=== PATIENT | female | born 1995 | race Caucasian/White ===

== ENCOUNTER → 2022-08-25 12:35 | Outpatient (CLI) | payer OTHER, SELFPAY ==
[2022-08-25 13:03] LABS: Specimen Label NATERA
== END ==
PROVIDERS: PCP Physician Assistant; Referring Provider Obstetrics & Gynecology; Visit Provider Obstetrics & Gynecology
DX: Z34.81 Encounter for supervision of other normal pregnancy, first trimester (principal)
CPT/HCPCS: 36415; 86850; 86900; 86901

== ENCOUNTER → 2022-09-07 08:57 | Outpatient (CLI) | payer OTHER, SELFPAY | PROVIDERS: PCP Physician Assistant; Visit Provider Obstetrics & Gynecology | DX: Z34.01 Encounter for supervision of normal first pregnancy, first trimester (principal); Z3A.12 12 weeks gestation of pregnancy | CPT/HCPCS: 87086 ==

== ENCOUNTER → 2022-09-07 09:01 | Outpatient (CLI) | payer OTHER, SELFPAY ==
[2022-09-07 09:52] LABS: Add Manual Diff / Slide Review NO; Basophils Absolute Auto 0 /uL (0-100); Basophils Percent Auto 0.2 % (0-2); Eosinophils Absolute Auto 100 /uL (0-450); Hematocrit 35.3 % (36-46); Hemoglobin 12.2 g/dL (12.0-16.0); Lymphocytes Absolute Auto 1700 /uL (1100-4500); Lymphocytes Percent Auto 19.9 % (25-40); Mean Corpuscular HGB Conc 34.7 % (30-36); Mean Corpuscular Hemoglobin 29.9 PG (26-34); Mean Corpuscular Volume 86.4 fL (80-100); Monocytes Absolute Auto 500 /uL (0-900); Monocytes Percent Auto 6.1 % (3-14); Neutrophils Absolute Auto 6200 /uL (1500-7000); Neutrophils Percent Auto 72.8 % (50-75); Platelet Count 288 X10^3/uL (150-400); Red Blood Cell Count 4.08 X10^6/uL (4.0-5.2); Red Cell Distribution Width 14.2 % (11.6-14.8); White Blood Cell Count 8.5 X10^3/uL (4.5-11.0)
[2022-09-07 15:31] LABS: Hepatitis B Surface Antigen NEGATIVE s/c (NEGATIVE); Rubella Antibody IgG > 350.0 IU/mL (>15)
[2022-09-07 15:36] LABS: HIV 1 & 2 Ab/Ag 4th Gen Combo NEGATIVE (NEGATIVE); Hep C Virus Ab w/Reflex Quant NEGATIVE s/c (NEGATIVE)
[2022-09-08 06:07] LABS: RPR Screen Non Reactive (Non Reactive)
[2022-09-08 09:02] LABS: Varicella IgG Antibody 1769 index (Immune >165)
== END ==
PROVIDERS: PCP Physician Assistant; Referring Provider Obstetrics & Gynecology; Visit Provider Obstetrics & Gynecology
DX: Z34.01 Encounter for supervision of normal first pregnancy, first trimester (principal); Z3A.12 12 weeks gestation of pregnancy
CPT/HCPCS: 36415; 80055; 86787; 86803; 87086; 87389

== ENCOUNTER → 2022-09-15 16:35 | Outpatient (CLI) | payer OTHER, SELFPAY | PROVIDERS: PCP Physician Assistant; Referring Provider Obstetrics & Gynecology; Visit Provider Obstetrics & Gynecology | DX: O28.5 Abnormal chromosomal and genetic finding on antenatal screening of mother (principal) | CPT/HCPCS: 36415 ==

== ENCOUNTER → 2022-10-06 11:09 | Outpatient (CLI) | payer OTHER, SELFPAY ==
[2022-10-08 22:58] LABS: Estriol, Free 0.26 ng/mL (.); Inhibin A, Dimeric 165.97 pg/mL (.); Inhibin A, MoM 1.54 (.); Maternal Ethnicity Caucasian (.); Maternal Weight 296 lbs (.); Number of Fetuses No (.); OSBR Risk 1 IN 10000 (.); Results Report (.); Test Results *Screen Positive* (.); hCG, MoM 2.05 (.); hCG, Serum 57134 mIU/mL (.)
== END ==
PROVIDERS: PCP Physician Assistant; Referring Provider Obstetrics & Gynecology; Visit Provider Obstetrics & Gynecology
DX: Z34.02 Encounter for supervision of normal first pregnancy, second trimester (principal); Z3A.16 16 weeks gestation of pregnancy
CPT/HCPCS: 36415; 82105; 82677; 84702; 86336

== ENCOUNTER → 2022-10-18 14:26 | Outpatient (CLI) | payer OTHER, SELFPAY ==
[2022-10-18 20:01] LABS: Urine N gonorrhoeae NOT DETECTED
[2022-10-18 20:24] LABS: Urine Chlamydia NOT DETECTED
== END ==
PROVIDERS: PCP Physician Assistant; Visit Provider Obstetrics & Gynecology
DX: Z34.02 Encounter for supervision of normal first pregnancy, second trimester (principal); Z3A.17 17 weeks gestation of pregnancy
CPT/HCPCS: 87491; 87591

== ENCOUNTER 2022-11-29 08:16 | Inpatient (IN) | payer OTHER, SELFPAY ==
--- NOTE | 2022-11-29 | DI.US.S_ITS ---
PROCEDURE: US OB LIMITED INDICATIONS: DEMISE OUTSIDE/PRIOR DATING DATA: Last menstrual period (LMP): 06/15/22. LMP-based estimated date of delivery (PATRICK): 03/22/23. First dating scan (date and location): 08/25/22. Estimated date of delivery (PATRICK) from first dating scan: 03/24/23. The calculations are made using the clinical PATRICK of 03/22/23. TECHNIQUE: Real-time scanning was performed of the fetus, with image documentation. Endovaginal scanning: Not performed COMPARISON: None. FINDINGS: A single living intrauterine gestation is present. There is severe hydrops diffusely. Presentation: Breech. Placenta: Placental position is anterior and fundal, without previa. Amniotic fluid index: Subjectively decreased. There are several adhesions within the amniotic sac. Single deepest vertical pocket is not applicable cm. heart rate: Absent. Maternal cervical canal: Not imaged. Biparietal diameter 4.9 cm, 20 weeks five days Head circumference 17.6 cm, 20 weeks one day Abdominal circumference 16.4 cm, 21 weeks three days Femur length 3.1 cm, 19 weeks four days Composite gestational age 20 weeks three days Estimated gestational age from initial scan: 23 weeks six days. IMPRESSION: 1. Findings consistent with demise at 20 weeks three days. 2. hydrops. Dictated by: Maris Gallo M.D. on 11/29/2022 at 9:46 Approved by: Maris Gallo M.D. on 11/29/2022 at 10:11
[2022-11-29 10:47] LABS: Add Manual Diff / Slide Review NO; Basophils Absolute Auto 0 /uL (0-100); Basophils Percent Auto 0.3 % (0-2); Eosinophils Absolute Auto 200 /uL (0-450); Eosinophils Percent Auto 1.5 % (2-4); Hematocrit 35.7 % (36-46); Hemoglobin 11.9 g/dL (12.0-16.0); Lymphocytes Absolute Auto 2000 /uL (1100-4500); Lymphocytes Percent Auto 17.7 % (25-40); Mean Corpuscular HGB Conc 33.5 % (30-36); Mean Corpuscular Hemoglobin 29.7 PG (26-34); Mean Corpuscular Volume 88.6 fL (80-100); Monocytes Absolute Auto 500 /uL (0-900); Monocytes Percent Auto 4.1 % (3-14); Neutrophils Absolute Auto 8800 /uL (1500-7000); Neutrophils Percent Auto 76.4 % (50-75); Platelet Count 320 X10^3/uL (150-400); Red Blood Cell Count 4.03 X10^6/uL (4.0-5.2); White Blood Cell Count 11.5 X10^3/uL (4.5-11.0)
[2022-11-29 10:57] VITALS: BP 133/70
--- NOTE | 2022-11-29 10:57 | PM.OBHP.IH.1 ---
OB HPI Date/Time Date of admission: 11/29/22 Date Patient Seen: 11/29/22 Time Patient Seen: 09:45 History of Present Condition Chief complaint: Hysterotomy PATRICK Calculator Estimated Delivery Date Method Current WG Current Estimate 03/22/23 LMP (Certain) 23w 6d Other Estimates 03/24/23 Ultrasound #1 23w 4d Estimated Gestational Age (weeks): 23+6 : 1 Para: 0 care: good care, initiated at week # (10), number of visits (11) and pounds weight gain (0) Dating criteria OB: LMP confirmed by 1st trimester US Ultrasounds: abnormal US findings Abnormal ultrasound findings: Cystic hygroma discovered at 9 weeks' gestation, also hydrops Obstetrical complications: other (cystic hygroma) Medical complications OB: none Indications Indication for induction OB: other (Intrauterine demisa) Preadmission Labs Last OB Lab Results: Blood Type O Positive 08/25/22 12:50 Antibody Screen Negative 08/25/22 12:50 Hematocrit 35.7 % (36-46) L 11/29/22 10:10 Hemoglobin 11.9 g/dL (12.0-16.0) L 11/29/22 10:10 Hepatitis B Surface Antigen Negative s/c (NEGATIVE) 09/07/22 09:06 Hepatitis C Antibody Negative s/c (NEGATIVE) 09/07/22 09:06 Rubella Antibody > 350.0 IU/mL (>15) 09/07/22 09:06 Varicella-Zoster IgG Antibody 1769 index (Immune >165) 09/07/22 09:06 -: Chlamydia screen: negative, Gonorrhea screen: negative and Urine: negative Genetic Screens: Cell-free DNA: Abnormal (insufficient fraction) External Labs -: Urine: negative PFSH Medical History (Updated 11/26/22 @ 13:54 by Kinsey Stanton MD) Acne (~2010) Asthma Family history of MTHFR deficiency Painful menstruation Slipped capital femoral epiphysis (~2009) Surgical History (Updated 08/26/22 @ 06:45 by Flori Payne) Anesthesia History of hip surgery Family History (Updated 08/26/22 @ 06:43 by Flori Payne) Grandfather Bladder cancer Diabetes mellitus Mother Diabetes mellitus Asthma History of recurrent miscarriages MTHFR gene mutation Delivery outcome of stillborn infant Father Hyperlipidemia Hypertension Grandfather Cardiac arrhythmia Pacemaker Grandmother Osteoporosis Anemia Hypoglycemia Grandmother Colostomy in place Diabetes mellitus Neuropathy of both feet Sister Anxiety Vasovagal syncope Brother Asthma Sister Anxiety Social History marital status: number of children: 0 household members: spouse lives independently: Yes caregiver/support person: No housing: house pets and animals: Yes education level: college ([employer] x[employer]) occupational status: employed (4th grade math teacher) current occupational exposures/hazards: No keshawn/oriental orthodox: Roman Catholic special keshawn needs: No travel history: recent (domestic only) seatbelt use: always helmet use: Yes water heater temp set < 120 deg: Yes working smoke detector in home: Yes fire extinguisher in home: Yes carbon monox detector in home: Yes firearms in home: Yes firearms unloaded and locked: Yes do you feel safe at home: Yes Smoking Status: Never smoker second hand exposure: No alcohol intake: former (rarely when not ) substance use type: does not use during the past year weight has: other (large ~70lb fluctuation in last 1-2 years) well-balanced diet: about half the time daily servings fruits/ve-4 caffeine: No (no longer drinking coffee while ) Type(s) of exercise: walking Meds Home Medications and Allergies Home Medications Medication Instructions Recorded Confirmed Type albuterol sulfate 90 mcg/actuation 2 puff inhalation Q6H PRN 07/27/22 11/19/22 History aerosol inhaler prenat.vits,araceli,[id number] 1 tab PO DAILY 07/27/22 11/19/22 History progesterone micronized 200 mg 400 mg vaginal BEDTIME 07/27/22 11/19/22 History capsule nystatin-triamcinolone 100,000 1 applic topical BID #30 grams 11/12/22 11/19/22 Rx unit/gram-0.1 % topical ointment metformin 500 mg tablet 500 mg PO BID 11/19/22 11/19/22 History Allergies Allergy/AdvReac Type Severity Reaction Status Date / Time No Known Drug Allergies Allergy Unverified 11/19/22 09:01 OB Exam Narrative Exam Narrative: Generally: Patient is sitting up in bed, no acute distress Objective Labs 11/29/22 10:10 Labs: Laboratory Results - last 24 hr 11/29/22 10:10 WBC 11.5 H RBC 4.03 Hgb 11.9 L Hct 35.7 L MCV 88.6 MCH 29.7 MCHC 33.5 RDW 14.0 Plt Count 320 Neut % (Auto) 76.4 H Lymph % (Auto) 17.7 L Harmon % (Auto) 4.1 Eos % (Auto) 1.5 L Baso % (Auto) 0.3 Neut # (Auto) 8800 H Lymph # (Auto) 2000 Harmon # (Auto) 500 Eos # (Auto) 200 Baso # (Auto) 0 Assessment and Plan Assessment and Plan Assessment and Plan narrative: Assessment: 27-year-old 0 with an intrauterine demise at 23+ 6 weeks' gestation Large cystic hygroma and hydrops Breech presentation Plan: Misoprostol 600 mcg intra vaginal every 4 hours Fentanyl/nitrous oxide/epidural as needed Discussed piece of tissue for microarray genetics Discussed disposition of the fetus to [facility] home Time Spent with Patient Total time spent with greater than 50% in coordination of care (as documented) at patient's floor/unit and/or counseling patient:: Greater than 35 minutes
[2022-11-29] MEDS: miSOPROStoL 200 MCG TABLET 600 MCG VAG ×3 (11:12→19:52)
[2022-11-29] MEDS: fentaNYL 100 MCG/2 ML INJ IV (16:33)
--- NOTE | 2022-11-29 17:03 | PM.OBPNLAB ---
Date/Time Date Patient Seen: 11/29/22 Time Patient Seen: 17:04 Pain Control Comments: Getting more uncomfortable since the second dose of misoprostol at 3:30 pm Requesting an epidural Assessment and Plan Assessment: induction ongoing Comments: Epidural We will check cervix at next misoprostol dose
--- NOTE | 2022-11-29 17:41 | PM.AN.REGBLK ---
Regional Block Pre-procedure Procedure: Continuous Lumbar Epidural for L&D PMH/ROS narrative: f- demise 20 weeks Exam narrative: Obesity Labs: Hct 35.7 % (36-46) L 11/29/22 10:10 Plt Count 320 X10^3/uL (150-400) 11/29/22 10:10 Medications: Current Medications Generic Name Dose Route Start Last Admin Trade Name Freq PRN Reason Stop Dose Admin Carboprost Tromethamine 250 mcg 11/29/22 10:04 Carboprost 250 Mcg/Ml Ampul IM Q90M PRN Bleeding Fentanyl 100 mcg 11/29/22 10:04 11/29/22 16:33 Fentanyl 100 Mcg/2 Ml Inj IV 100 mcg Q1H PRN Administration Pain, Severe (7-10) Oxytocin/Lactated Ringer's 30 unit in 500 mls @ 200 mls/hr 11/29/22 10:04 Oxytocin Premix IV CONT PRN Bleeding Protocol Tranexamic Acid 1,000 mg/ 100 mls @ 200 mls/hr 11/29/22 10:04 Sodium Chloride IV NOW PRN Bleeding Lidocaine HCl 20 ml 11/29/22 10:04 Lidocaine 1% 20 Ml INJ INTRA-OP PRN Post Delivery Methylergonovine Maleate 0.2 mg 11/29/22 10:04 Methylergonovine 0.2 Mg Tablet PO Q6HR PRN Heavy Bleeding Methylergonovine Maleate 0.2 mg 11/29/22 10:04 Methylergonovine 0.2 Mg/Ml Vial IM NOW PRN Bleeding Misoprostol 600 mcg 11/29/22 11:15 11/29/22 15:25 Misoprostol 200 Mcg Tablet VAG 600 mcg Q4HR LACY Administration Naloxone HCl 0.2 mg 11/29/22 10:04 Naloxone 0.4 Mg/Ml Vial IV Q2MIN PRN Opiate Reversal Oxytocin 10 unit 11/29/22 10:04 Oxytocin 10 Unit/Ml Vial IM NOW PRN Bleeding Allergies: Allergies Allergy/AdvReac Type Severity Reaction Status Date / Time No Known Drug Allergies Allergy Unverified 11/19/22 09:01 Procedure Insertion date: 11/29/22 Insertion time: 17:30 Prep/Local: betadine x3 and 1% lidocaine Interspace: L4-5 Patient position: sitting Needle: 18 gauge Dyllan Loss of resistance with: air WALTER at (cm): 8 Catheter placed at SKIN (cm): 13 Catheter in SPACE (cm): 5 Initial Medications TEST DOSE time: 17:32 BOLUS DOSE time: 17:34 BOLUS DOSE (mL): 10 BOLUS DOSE med: 0.25% bupivacaine Infusion Initial rate (mL/hr): 12 Subsequent interventions: Rate was changed to 8ml/hr at 2100 Post-procedure Anesthesia time START: 17:30
[2022-11-29] MEDS: CEFAZOLIN 2 GM/100 ML PREMIX 100 ML IV (21:32)
[2022-11-30] MEDS: FENT 2MCG/ML BUPIV 0.1% EPI 200 MCG/100 ML PLAST..BAG 12 MCG EPIDURAL (00:05)
[2022-11-30] MEDS: miSOPROStoL 200 MCG TABLET 600 MCG VAG ×2 (00:06→04:09)
[2022-11-30] MEDS: CEFAZOLIN 2 GM/100 ML PREMIX 100 ML IV ×3 (05:28→20:16)
[2022-11-30] MEDS: FENT 2MCG/ML BUPIV 0.1% EPI 200 MCG/100 ML PLAST..BAG 8 MCG EPIDURAL ×2 (07:37→14:49)
[2022-11-30] MEDS: OXYTOCIN PREMIX 30 UNIT/500 ML PLAST..BAG 6 UNIT IV (09:26)
--- NOTE | 2022-11-30 12:47 | PM.OBPNLAB ---
Date/Time Date Patient Seen: 11/30/22 Time Patient Seen: 08:00 Pain Control Comments: Epidural not working as well, anesthesiologist on his way to replace Pelvic Exam Dilation (cm): 1 Effacement (%): 75 Amniotic membrane status: Ruptured Comments: SROM at 5pm yesterday Assessment and Plan Assessment: induction ongoing Plan: continuous present management Comments: D/C Misoprostol Begin high dose Pitocin 6mIU/min Continue antibiotics
--- NOTE | 2022-11-30 12:50 | PM.OBPNLAB ---
Date/Time Date Patient Seen: 11/30/22 Time Patient Seen: 12:51 Pain Control Pain control: epidural Comments: Patient comfortable Pelvic Exam Dilation (cm): 3 Effacement (%): 80 Amniotic membrane status: Ruptured Assessment and Plan Assessment: induction ongoing Plan: continuous present management
[2022-11-30] MEDS: ACETAMINOPHEN 325 MG TABLET 975 MG PO (14:54)
--- NOTE | 2022-11-30 19:29 | PM.PREOP ---
Pre-operative Note Interval Note History & Physical reviewed/Exam performed by Physician: Yes Changes to H&P: No H&P completed within 30 days and has changed as indicated here:: 11/29/22
--- NOTE | 2022-11-30 19:45 | P.PCNOB_ITS ---
Events: Labor Induction and Other (Intrauterine demise) Labor & Delivery Delivery date: 11/30/22 Intrapartal Events: None Cervical ripening method: per misoprostal protocol Induction method: per pitocin protocol Delivery monitor: external uterine Route of delivery: L&D Laceration Description: None Quantitative Blood Loss: 50 Anesthesia Type: Epidural Complications: Retained placenta Narrative: Patient pushed for 36 min. At 1756, a non-viable female fetus delivered spontaneously. The cord was double-clamped and cut. Pitocin 30 Units in 500cc was given at 220cc/hour. After 1 hr and 45 min, the placenta still had not delivered. Patient taken to OR for removal of placenta. weight: 454gm. Consulting Property Manager notified. Baby 1: gender: Female Presentation: breech Placenta delivery description: Uterine Exploration Cord Vessel Description: 3 Vessels score (1 min): 0 score (5 min): 0 weight: 1 lb 0.014 oz Plan for aftercare: Other (To the OR for placenta removal)
[2022-11-30] MEDS: CEFAZOLIN VIAL 1 GM in SODIUM CHLORIDE 0.9% 100 ML IV (20:20)
--- NOTE | 2022-11-30 20:22 | SUR.OPER ---
Lithotomy on padded OR bed, head on pillow, arms secured on padded arm boards at <90 degrees abduction. Legs secured in padded yellow fins stirrups.
[2022-11-30] MEDS: AZITHROMYCIN 500 MG in DEXTROSE 5% IN WATER 250 ML 250 MG IV (20:42)
--- NOTE | 2022-11-30 20:44 | PM.GYNOP.1 ---
Operative Date/Time/Diagnoses Date of procedure: 11/30/22 Time of procedure: 20:44 Pre-op diagnosis: Retained placenta Post-op diagnosis: same Procedure & Clinicians Procedure: Procedures Operation Date: 11/29/22 11:45 <No data on this case meets the specified criteria> Operation Date: 11/30/22 20:00 Actual Procedure Side Surgeon p removal of placenta, suction Kinsey Stanton MD Indications: Retained placenta after 23 week delivery Surgeon: Kinsey Stanton Anesthesia Type: Epidural and Sedation (light) Operative Notes Findings: Entire placenta with membranes attached still in uterus Closure Type: not applicable Specimen(s): other (Placenta) Applied: catheter (Chowdhury catheter in place) Estimated blood loss (mL): 100 Blood products transfused: none Procedure in detail: Informed consent was obtained. The patient was taken to the operating room where she was placed in the dorsal supine position. Her epidural was dosed. She was placed in the dorsal lithotomy position, and prepped and draped in the usual sterile fashion. A bivalve speculum was placed into the vagina. The anterior lip of the cervix was grasped with a ring forcep. A second ring forceps was used to probe the uterus and grasped the placenta. The placenta was removed in 1 piece with membranes attached. Using the # 14 curved plastic curette, several passes with suction revealed blood only. The suction curette was removed from the uterus. The ring forcep was removed from the anterior lip of the cervix. There was minimal bleeding from the cervical os. Sponge, lap, and instrument counts were correct x2. The patient tolerated the procedure well, and was taken to PACU in stable condition. Complications: none Post-operative Condition: stable Disposition: PACU Plan for aftercare: To the center after recovery
--- NOTE | 2022-11-30 20:48 | SUR.PHASEI ---
Patient transferred directly to L&D via bed from operating room with surgical staff in stable condition; Report given to GARRICK Neff.
[2022-11-30] MEDS: IBUPROFEN 600 MG TABLET PO (22:32)
[2022-11-30] MEDS: OXYCODONE IR 5 MG TABLET PO (22:33)
[2022-12-01 05:42] LABS: Add Manual Diff / Slide Review NO; Basophils Absolute Auto 0 /uL (0-100); Basophils Percent Auto 0.1 % (0-2); Eosinophils Absolute Auto 200 /uL (0-450); Eosinophils Percent Auto 1.3 % (2-4); Hematocrit 30.5 % (36-46); Hemoglobin 10.6 g/dL (12.0-16.0); Lymphocytes Absolute Auto 2300 /uL (1100-4500); Lymphocytes Percent Auto 18.5 % (25-40); Mean Corpuscular HGB Conc 34.8 % (30-36); Mean Corpuscular Hemoglobin 30.7 PG (26-34); Mean Corpuscular Volume 88.3 fL (80-100); Monocytes Absolute Auto 700 /uL (0-900); Monocytes Percent Auto 5.5 % (3-14); Neutrophils Absolute Auto 9400 /uL (1500-7000); Neutrophils Percent Auto 74.6 % (50-75); Platelet Count 254 X10^3/uL (150-400); Red Blood Cell Count 3.45 X10^6/uL (4.0-5.2); Red Cell Distribution Width 13.9 % (11.6-14.8); White Blood Cell Count 12.5 X10^3/uL (4.5-11.0)
[2022-12-01] MEDS: IBUPROFEN 600 MG TABLET PO ×2 (06:38→13:01)
[2022-12-01] MEDS: ACETAMINOPHEN 325 MG TABLET 650 MG PO ×2 (06:38→13:01)
[2022-12-01 14:25] VITALS: BP 115/71; PULSE 72; RESP 14; TEMP 36.7
--- NOTE | 2022-12-06 10:30 | PM.OBDS.1 ---
Discharge Providers Provider Date of admission: 11/29/22 08:16 Discharge Date: 12/01/22 Primary care physician: Radha Mcneal PA-C Consults: 11/29/22 10:04 Consult to Anesthesiology Urgent Comment: Consulting Provider: Anesthesiologist Reason for consultation: Epidural Discharge provider: Kinsey Stanton MD Summary Hospital Course Date Patient Seen: 12/01/22 Time Patient Seen: 11:30 Diagnoses: 23+ 6 weeks' gestation Cystic hygroma Intrauterine demise Induction of labor with misoprostol Spontaneous vaginal delivery Retained placenta To operating room for removal of placenta Hospital Course: Patient is a 27-year-old 1 para 0 who presented on November 29, 2022 for induction of labor of a 23-,6/7 weeks intrauterine demise. complicated by cystic hygroma and hydrops. She was started on misoprostol 600 mcg intra vaginal every 4 hours. She received an epidural for pain management. On November 30, 2022, patient had a spontaneous vaginal delivery of a nonviable in the breech presentation. Some membranes delivered spontaneously. There was a retained placenta. Patient was taken to the operating room where the placenta was removed. The remainder of her course was unremarkable. She was discharged home on December 01, 2022 Peripartum Data Delivery Method: Natural Vaginal Laceration Description: None Episiotomy description: None Procedures: Misoprostol induction of labor Epidural analgesia Spontaneous vaginal delivery of in the breech presentation Removal of the placenta in the operating room complications: retained placenta [place] 1: Gender: Female Disposition of : other (Disposition to [facility]) Status at Discharge Cognitive/behavioral status at discharge: oriented Functional status at discharge: independent ambulation Overall status at discharge: patient is progressing back to baseline Time Spent with Patient Time attestation: Total time spent providing and/or coordinating discharge services: Time spent: Less than 30 minutes Objective Labs 12/01/22 05:30 Exam Narrative Exam Narrative: Generally: Patient is sitting up in bed, fully dressed, no acute distress Fundus: Firm just above the pubic symphysis Discharge Plan Discharge Plan Patient Disposition: Home Provider Discharge Comment: Call with fever, chills or bleeding vaginally soaking a pad in an hour Tylenol 650mg every 6 hours Ibuprofen 600mg every 6 hours Discharge orders & Medications Prescriptions: Continued prenat.vits,araceli,[id number] Tablet 1 tab PO DAILY albuterol sulfate 90 mcg/actuation HFA aerosol inhaler 2 puff inhalation Q6H PRN metformin 500 mg tablet 500 mg PO BID Discontinued progesterone micronized 200 mg capsule 400 mg vaginal BEDTIME nystatin-triamcinolone 100,000-0.1 unit/gram-% ointment 1 applic topical BID Qty: 30 2RF Rx Instructions: Apply to affected area twice a day for 2-3 wks or until rash is gone Follow up/Referrals: Kinsey Stanton MD [Physician] - 12/28/22 10:30 am Diet/Activity/Treatments Diet: Regular Activity: Nothing in the vagina until bleeding stops Skin/Wound/Dressing Care Report to your healthcare provider any signs of infection, such as:: chills, fever, increased pain and unusual drainage Visit Report/Discharge Packet Instructions: DI for Labor and Delivery, Vaginal Stand Alone Forms: Discharge: Care, Patient Portal/API, Stroke Signs & Symptoms Discharge Data Primary Care Provider: Radha Mcneal Discharges patient from system. Discharge Date/Time: 12/01/22 15:35
== END 2022-12-01 15:35 | disposition home or self-care (01) | DRG 768 ==
LOC: AC 08:17 → LABOR 08:35
PROVIDERS: Admitting Provider Obstetrics & Gynecology; PCP Physician Assistant; Referring Provider Obstetrics & Gynecology; Visit Provider Obstetrics & Gynecology
PROC: [UNRECOGNIZED PROCEDURE] (CPT 58120; principal; 2022-11-30 20:00)
DX: O36.4XX0 Maternal care for intrauterine death, not applicable or unspecified (principal); Z37.1 Single stillbirth; Z3A.23 23 weeks gestation of pregnancy; O66.3 Obstructed labor due to other abnormalities of fetus; O32.1XX0 Maternal care for breech presentation, not applicable or unspecified
CPT/HCPCS: 36415; 59050; 59200; 59400; 59414; 76815; 85025; 86850; 86900; 86901; J0690; J2250; J2405; J2590; J3010; S0191

== ENCOUNTER → 2023-02-17 15:13 | Outpatient (CLI) | payer OTHER, SELFPAY | PROVIDERS: PCP Physician Assistant; Visit Provider Student in an Organized Health Care Education/Training Program | DX: R30.0 Dysuria (principal) | CPT/HCPCS: 87086 ==

== ENCOUNTER → 2023-06-07 16:13 | Outpatient (CLI) | payer OTHER, SELFPAY ==
[2023-06-07 18:15] LABS: HCG Quantitative /Beta subunit 141.9 mIU/mL
== END ==
PROVIDERS: PCP Physician Assistant; Referring Provider Obstetrics & Gynecology; Visit Provider Obstetrics & Gynecology
DX: N91.2 Amenorrhea, unspecified (principal)
CPT/HCPCS: 36415; 84702

== ENCOUNTER → 2023-06-09 13:32 | Outpatient (CLI) | payer OTHER, SELFPAY ==
[2023-06-09 16:07] LABS: HCG Quantitative /Beta subunit 332.3 mIU/mL
== END ==
LOC: LAB 13:33
PROVIDERS: PCP Physician Assistant; Referring Provider Obstetrics & Gynecology; Visit Provider Obstetrics & Gynecology
DX: N91.2 Amenorrhea, unspecified (principal)
CPT/HCPCS: 36415; 84702

== ENCOUNTER → 2023-06-20 13:37 | Outpatient (CLI) | payer OTHER, SELFPAY ==
[2023-06-22 14:36] LABS: Candida species Negative (Negative); Gardnerella vaginalis Negative (Negative); Trichomoas vaginalis Negative (Negative)
== END ==
PROVIDERS: PCP Physician Assistant; Visit Provider Obstetrics & Gynecology
DX: N94.9 Unspecified condition associated with female genital organs and menstrual cycle (principal)
CPT/HCPCS: 87086; 87480; 87510; 87660